=== PATIENT | female | born 1955 | race Caucasian/White ===

== ENCOUNTER 2018-08-02 05:52 | Day surgery (SDC) | payer OTHER ==
[2018-08-01 17:05] VITALS: BMI 27.8
[2018-08-02] MEDS ORDERED: MEPIVACAINE HCL/PF 15 MG/ML ML ONE (07:11)
[2018-08-02] MEDS ORDERED: MIDAZOLAM HCL 2 MG/2 ML SINGLE DOSE VIAL ONE (07:11)
[2018-08-02] MEDS ORDERED: BUPIVACAINE HCL/PF (5 MG/ML) 30 ML VIAL IJ ONE (07:12)
[2018-08-02] MEDS ORDERED: SUCCINYLCHOLINE CHLORIDE 200 MG/10 ML VIAL ONE (07:41)
[2018-08-02] MEDS ORDERED: PROPOFOL 20 ML ONE ×2 (07:41)
[2018-08-02] MEDS ORDERED: EPINEPHrine 1:1,000 1 MG/1 ML - 30ML VIAL (INJECTION) ONE (08:24)
[2018-08-02] MEDS ORDERED: ONDANSETRON 4 MG/2 ML VIAL IVPUSH PRN (08:55)
[2018-08-02] MEDS ORDERED: PROMETHAZINE HCL 25 MG/1 ML VIAL IVPUSH PRN (08:55)
[2018-08-02] MEDS ORDERED: oxyCODONE HCL 5 MG TABLET PO PRN ×2 (08:55)
[2018-08-02 10:36] VITALS: BP 110/74; PULSE 64; TEMP 98
--- NOTE | 2018-08-02 15:27 | OP ---
ADDENDUM DATE OF OPERATION: 08/02/2018 SURGEON: Kristian Starkey MD [employer] OPERATOR: ESPERANZA Kyle PREOPERATIVE DIAGNOSES: 1. Left shoulder adhesive capsulitis. 2. Left shoulder impingement syndrome. 3. Left shoulder acromioclavicular joint disease. 4. Left shoulder arthroscopy anterior and posterior synovitis. 5. Left shoulder rotator cuff tear. POSTOPERATIVE DIAGNOSES: 1. Left shoulder adhesive capsulitis. 2. Left shoulder impingement syndrome. 3. Left shoulder acromioclavicular joint disease. 4. Left shoulder arthroscopy anterior and posterior synovitis. 5. Left shoulder rotator cuff tear. PROCEDURE PERFORMED: 1. Left shoulder arthroscopy with lysis and resection of adhesions (CPT code 34567). 2. Left shoulder arthroscopy with subacromial decompression (CPT code 29526). 3. Left shoulder arthroscopy with resection of the distal clavicle and acromioclavicular joint (CPT code 98077). 4. Left shoulder arthroscopy with debridement (CPT code 80221). FINDINGS: 1. Type 1 superior labral tear, anterior to posterior, with extension to the posterior portion of the biceps. 2. Partial biceps tear, 10%. 3. A 30% rotator cuff tear, supraspinatus. 4. A 10% subscapularis tear. 5. Thickened scar tissue and adhesions of the glenohumeral joint with synovitis. 6. Type 2 acromion with anterior spur. 7. Thickened scar tissue in the subacromial space, most predominantly laterally. 8. Inferior spur of the distal clavicle to the acromioclavicular joint. Left shoulder arthroscopy with subacromial decompression ADDENDUM: The recreational assistant, Joe Pereira, was necessary to allow for passage of instruments through multiple portals and was medically necessary to help perform the case. KRISTIAN STARKEY M.D. [id number]
--- NOTE | 2018-10-27 21:49 | OP ---
Repeat dictation from notes. DATE OF OPERATION: 08/02/2018 SURGEON: Kristian Starkey MD [employer] ARCHITECT: ESPERANZA Kyle PREOPERATIVE DIAGNOSIS: 1. Left shoulder adhesive capsulitis. 2. Left shoulder impingement syndrome. 3. Left shoulder acromioclavicular degenerative joint disease. 4. Left shoulder arthroscopy, superior labral tear, [id number] with synovitis. 5. Left shoulder rotator cuff tear. POSTOPERATIVE DIAGNOSIS: 1. Left shoulder adhesive capsulitis. 2. Left shoulder impingement syndrome. 3. Left shoulder acromioclavicular degenerative joint disease. 4. Left shoulder arthroscopy, superior labral tear, [id number] with synovitis. 5. Left shoulder rotator cuff tear. PROCEDURE: 1. Left shoulder arthroscopy with lysis and resection of adhesions, CPT code 92863. 2. Left shoulder arthroscopy with subacromial decompression, CPT code 98142. 3. Left shoulder arthroscopy with resection of distal clavicle of the acromioclavicular joint, CPT code 95892. 4. Left shoulder arthroscopy with debridement, CPT code 87487. FINDINGS: 1. Type 1 superior labral tear, [id number] with extension to the posterior portion of the biceps. 2. Partial biceps tear, 10%. 3. A 30% rotator cuff tear of supraspinatus. 4. A 10% subscapularis tear thickness. 5. Thickened scar tissue with adhesions of glenohumeral joint with synovitis. 6. Type 2 acromion with anterior and lateral spurring. 7. Thickened scar tissue of the subacromial space, predominantly laterally with adhesions and scar tissue in the right inferior spur distal clavicle with acromioclavicular joint disease. 8. Posterior labral fraying. PROCEDURE: Informed consent was obtained. The patient was taken to the operating room, where the upper extremity was prepped and draped in a sterile fashion. Scalene block was performed by anesthesia. Using standard arthroscopic technique, a posterior incision portal was made, which allowed for introduction of a camera into the glenohumeral joint. Under direct visualization, an anterior incision and portal was made. Extensive and thickened synovitis was debrided. All loose cartilage was debrided. Rotator cuff was identified and evaluated, as were the subacromial and bursal surfaces. The posterior incision portal was redirected to the subacromial space, where a lateral incision and portal was made. Excessive and thickened synovium was removed throughout the subacromial space including the anterior scar tissue, posterior bursal and lateral bursa. The type 2 acromion was converted to a flattened type 1, removing the anterior and lateral spurring. Accessory portal was made at the acromioclavicular joint, removing the inferior spur of the distal clavicle at the acromioclavicular joint allowing for a distal clavicle partial resection. Shoulder was once again reexamined; all impingement was removed. The shoulder was drained. A single suture was placed in all portals and a sterile dressing was placed and the patient was transferred to recovery room without complication. The PA listed above was present and assisted at surgery. Their presence was absolutely medically necessary for the completion of the procedure. They helped hold the arthroscopy, pass instruments (and implants when indicated) and the procedure could not have been completed without their assistance. The clerical assistant, Joe Pereira, was necessary to allow for passage of instruments through multiple portals and was medically necessary to help with performance of this case. The PA listed above was present and assisted at surgery. Their presence was absolutely medically necessary for the completion of the procedure. They helped hold the arthroscopy, pass instruments (and implants when indicated) and the procedure could not have been completed without their assistance. KRISTIAN STARKEY M.D. [id number]
== END 2018-08-02 10:45 | disposition home or self-care (01) ==
LOC: FASU 05:52
PROVIDERS: ATTEND Orthopaedic Surgery
PROC: 0RNK4ZZ Release Left Shoulder Joint, Percutaneous Endoscopic Approach (ICD-10-PCS; 2018-08-02)
PROC: 0RBK4ZZ Excision of Left Shoulder Joint, Percutaneous Endoscopic Approach (ICD-10-PCS; 2018-08-02)
PROC: 0PBB4ZZ Excision of Left Clavicle, Percutaneous Endoscopic Approach (ICD-10-PCS; principal; 2018-08-02 08:13)
DX: M75.02 Adhesive capsulitis of left shoulder (principal); M75.42 Impingement syndrome of left shoulder; M19.012 Primary osteoarthritis, left shoulder; S43.432A Superior glenoid labrum lesion of left shoulder, initial encounter; X58.XXXA Exposure to other specified factors, initial encounter; Y93.9 Activity, unspecified; Y92.9 Unspecified place or not applicable; M75.112 Incomplete rotator cuff tear or rupture of left shoulder, not specified as traumatic; M66.822 Spontaneous rupture of other tendons, left upper arm
CPT/HCPCS: 94760